=== PATIENT | male | born 1935 | race Caucasian/White ===

== ENCOUNTER 2023-10-20 09:50 | Emergency (ER) | payer MEDICARE ==
[~2023-10-20] VITALS: Ht 172.7 cm; Wt 109.1 kg
[2023-10-20 10:38] LABS: BASO % 0.3 % (0.0-1.0); EOS # 0.1 10^3/uL (0.0-0.5); EOS % 0.7 % (0.0-3.0); HEMATOCRIT 39.5 % (42.0-52.0); HEMOGLOBIN 12.5 g/dl (13.5-17.5); LYMPH # 0.7 10^3/uL (1.5-5.0); LYMPH % 6.1 % (24.0-44.0); MEAN CORPUSCULAR HEMOGLOBIN 33.9 pg (27.0-33.0); MEAN CORPUSCULAR HGB CONC 31.6 g/dl (32.0-36.5); MONO # 1.2 10^3/uL (0.0-0.8); MONO % 9.6 % (2.0-8.0); NEUTROPHILS # 9.6 10^3/uL (1.5-8.5); NEUTROPHILS % 80.4 % (36.0-66.0); PLATELET COUNT, AUTOMATED 170 10^3/uL (150-450); RED BLOOD COUNT 3.69 10^6/uL (4.30-6.10); WHITE BLOOD COUNT 11.9 10^3/uL (4.0-10.0)
[2023-10-20] MEDS: ASPIRIN 81MG CHEW TABLET PO ONE (10:40)
[2023-10-20 10:42] VITALS: BP 186/84
[2023-10-20] MEDS: NITROGLYCERIN 0.4MG SUBL TABLET SL PRN (10:42)
[2023-10-20] MEDS: fentaNYL 100 MCG/2 ML INJECTION IV PRN (10:43)
[2023-10-20 10:55] LABS: INR 1.76; PARTIAL THROMBOPLASTIN TIME 33.7 SECONDS (24.8-34.2); PROTHROMBIN TIME 19.9 SECONDS (12.5-14.5)
[2023-10-20] MEDS ORDERED: ISOVUE-370 76% 100ML VIAL As Ordered ONE (11:01)
[2023-10-20 11:04] LABS: CK-MB VALUE MASS < 1.0 NG/ML (<3.6); LIPASE 54 U/L (12-53)
[2023-10-20 11:06] LABS: CPK CREATINE PHOSPHOKINASE 35 U/L (46-171); MB/CK RELATIVE INDEX 2.85 (< OR =4)
[2023-10-20 11:07] LABS: ALBUMIN 3.8 G/DL (3.2-5.2); ALKALINE PHOSPHATASE 88 U/L (46-116); ALT/SGPT 35 U/L (7.0-40); AST/SGOT 13 U/L (<34); BILIRUBIN,DIRECT 0.4 MG/DL (<0.4); BILIRUBIN,TOTAL 1.4 MG/DL (0.3-1.2); BLOOD UREA NITROGEN 28 MG/DL (9-23); CALCIUM LEVEL 8.5 MG/DL (8.3-10.6); CARBON DIOXIDE LEVEL 29 MMOL/L (20-31); CHLORIDE LEVEL 106 MMOL/L (98-107); CREATININE FOR GFR 1.05 MG/DL (0.70-1.30); GLOMERULAR FILTRATION RATE > 60.0 (>35); GLUCOSE, FASTING 148 MG/DL (74-106); POTASSIUM SERUM 4.2 MMOL/L (3.5-5.1); SODIUM LEVEL 141 MMOL/L (136-145)
[2023-10-20 11:08] LABS: FREE T4 1.26 NG/DL (0.89-1.76)
[2023-10-20 11:09] LABS: THYROID STIMULATING HORMONE 2.466 uIU/ML (0.55-4.78)
[2023-10-20] MEDS ORDERED: ALLO300T2 PO (12:23)
[2023-10-20] MEDS ORDERED: METO50TA7 PO (12:23)
[2023-10-20] MEDS ORDERED: TAMS1CAP17 PO (12:23)
[2023-10-20] MEDS ORDERED: PRED20TA PO (12:23)
[2023-10-20] MEDS ORDERED: PANT40TA29 PO (12:23)
[2023-10-20] MEDS ORDERED: CETI5SOL3 PO (12:23)
[2023-10-20] MEDS ORDERED: XARE20TA PO (12:23)
[2023-10-20] MEDS ORDERED: ACET-1349 PO (12:23)
[2023-10-20] MEDS ORDERED: NITR0.4S14 (12:23)
[2023-10-20] MEDS ORDERED: FURO20TA2 PO (12:23)
[2023-10-20] MEDS ORDERED: ATOR80TA59 PO (12:23)
[2023-10-20 12:25] LABS: CK-MB VALUE MASS < 1.0 NG/ML (<3.6)
[2023-10-20 12:27] LABS: CPK CREATINE PHOSPHOKINASE 21 U/L (46-171); MB/CK RELATIVE INDEX 4.76 (< OR =4)
[2023-10-20 14:14] LABS: CK-MB VALUE MASS < 1.0 NG/ML (<3.6)
[2023-10-20 14:20] LABS: CPK CREATINE PHOSPHOKINASE 23 U/L (46-171); MB/CK RELATIVE INDEX 4.34 (< OR =4)
[2023-10-20] MEDS ORDERED: MOXI400T11 PO (14:56)
[2023-10-20 15:00] VITALS: BP 134/62
[2023-10-20] MEDS: MOXIFLOXACIN 400 MG TAB PO ONE (15:00)
[2023-10-20 15:01] VITALS: O2SAT 93
[2023-10-20 15:24] VITALS: TEMP 100.1
== END 2023-10-20 15:27 | disposition home or self-care (01) ==
LOC: M ED 09:50
DX: R07.9 Chest pain, unspecified (principal); J18.9 Pneumonia, unspecified organism; I48.91 Unspecified atrial fibrillation; I25.119 Atherosclerotic heart disease of native coronary artery with unspecified angina pectoris; I10 Essential (primary) hypertension; Z79.1 Long term (current) use of non-steroidal anti-inflammatories (NSAID); Z79.52 Long term (current) use of systemic steroids; Z79.899 Other long term (current) drug therapy
CPT/HCPCS: 71045; 71275; 80047; 80048; 80076; 82550; 82553; 83690; 83880; 84439; 84443; 84484; 85025; 85610; 85730; 87486; 87581; 87633; 87798; 93005; 93041; 94760; 96374; 99285; J3010; Q9967